=== PATIENT | female | born 1945 | race Caucasian/White ===

== ENCOUNTER 2021-05-10 17:03 | Inpatient (IN) ==
[2021-05-10] MEDS ORDERED: ONDANSETRON 4 MG/2 ML VIAL IV STA (18:26)
[2021-05-10] MEDS ORDERED: methylPREDNISolone SOD SUC 125 MG/2 ML VIAL IV STA (18:26)
[2021-05-10] MEDS ORDERED: ALBUTEROL NEB SOLN 5 MG/ML 20 ML/BOTTLE CONT NEB SCH (18:30)
[2021-05-10 18:38] LABS: Basophils % 0.2 % (0.0-0.8); Eosinophils # 0.2 10*3/uL (0.0-0.87); Eosinophils % 0.9 % (0.00-10.9); Hematocrit 43.4 VOL% (35.7-47.0); Hemoglobin 14.1 GM/DL (12.0-16.0); Immature Granulocytes % 0.7 %; Immature Granulocytes Absolute 0.13 #; Lymphocytes # 0.6 10*3/uL (1.4-4.0); Lymphocytes % 3.6 % (21.3-54.2); Mean Corpuscular HGB Conc 32.5 GM/DL (32-36); Mean Corpuscular Volume 90.4 FL (87-102); Mean Platelet Volume 11.2 FL (9.6-12.0); Monocytes % 2.9 % (1.7-12.7); Neutrophils % 91.7 % (38.7-73.9); Platelet Count 211 T/CUMM (130-400); Red Cell Distribution Width 13.1 % (9.3-17.3); White Blood Count 17.6 T/CUMM (4-12)
[2021-05-10 18:45] LABS: ABG Base Excess 0.8 MMOL/L (-2.5-2.5); ABG Oxygen Saturation 92.6 % (95-100); ABG PCO2 36.5 MM HG (35-48); ABG PH 7.437 (7.35-7.45); ABG PO2 64.6 MM HG (80-95); ABG TCO2 21.2 MMOL/L (23-27)
[2021-05-10 18:47] LABS: Albumin 3.9 G/DL (3.4-5.0); Bilirubin,Total 0.5 MG/DL (0.20-1.00); Calcium 8.8 MG/DL (8.5-10.1); Osmolality,Calculated 267.4 MOS/KG (273-304); Potassium 3.7 MMOL/L (3.5-5.1); Total Protein 7.3 G/DL (6.4-8.2)
[2021-05-10 18:48] LABS: INR 1.1; PT Patient Result 12.1 SECS (10.5-12.0)
[2021-05-10] MEDS ORDERED: MAGNESIUM SULF RIDER 2 GM/50 ML PREMIX IV STA (18:52)
[2021-05-10 19:21] LABS: Eosinophils 2 % (0-10); Hypersegmented Neutrophil 2+; Hypochromasia 1+; Lymphocytes 4 % (20-55); Segmented Neutrophils 92 % (50-85); Total Cells Counted 100
[2021-05-10 19:22] LABS: Platelet Estimate Normal
[2021-05-10] MEDS ORDERED: cefTRIAXone 1,000 MG in SODIUM CHLORIDE 0.9% 100 ML IV STA (21:35)
[2021-05-10] MEDS ORDERED: DEXTROSE 50% 25 GM/50 ML VIAL IV PRN (22:17)
[2021-05-10] MEDS ORDERED: MORPHINE 2 MG/1 ML SYRINGE IV PRN (22:17)
[2021-05-10] MEDS ORDERED: ACETAMINOPHEN 325 MG TABLET PO PRN (22:17)
[2021-05-10] MEDS ORDERED: PROMETHAZINE 25 MG TABLET PO PRN (22:17)
[2021-05-10] MEDS ORDERED: ONDANSETRON 4 MG/2 ML VIAL IV PRN (22:17)
[2021-05-10] MEDS ORDERED: diphenhydrAMINE CAP 25 MG CAPSULE PO PRN (22:17)
[2021-05-10] MEDS ORDERED: hydrALAZINE 20 MG/1 ML VIAL IV PRN (22:17)
[2021-05-10] MEDS ORDERED: NICOTINE 21 MG/24 HR PATCH TRANSDERM PRN (22:17)
[2021-05-10] MEDS ORDERED: GLUCAGON 1 MG VIAL IM PRN (22:17)
[2021-05-10] MEDS ORDERED: ZALEPLON 5 MG CAPSULE PO PRN (22:17)
[2021-05-10] MEDS ORDERED: guaiFENesin/DM ER 600-30 MG TABLET PO PRN (22:17)
[2021-05-10 22:37] LABS: Bilirubin,Urine Negative (Negative); Blood, Urine Small mg/dL (Negative); Glucose,Urine (UA) Negative (Negative); Hyaline Casts,Urine 20 /LPF (0-3); Ketones,Urine Negative (Negative); Mucus,Urine Occasional /LPF (Occasional); Nitrite,Urine Negative (Negative); Protein,Urine Negative; RBC,Urine <1 /HPF (0-4); Squamous Epithelial Cell,Urine Occasional /HPF (0-10); Urine Appearance CLEAR (Clear); Urine Color Yellow (Yellow); Urine Specific Gravity 1.006 (1.001-1.035); Urine Urobilinogen < 2.0 EU/DL (0.2-1.0)
[2021-05-10] MEDS: ALBUTEROL/IPRATROPIUM 3 ML NEB RESP TX SCH (23:50)
[2021-05-11] MEDS: AZITHROMYCIN INJ 500 MG in SODIUM CHLORIDE 0.9% 250 ML IV SCH ×2 (00:55→23:09)
[2021-05-11 01:51] LABS: Basophils % 0.2 % (0.0-0.8); Eosinophils % 0.1 % (0.00-10.9); Hematocrit 40.2 VOL% (35.7-47.0); Immature Granulocytes % 0.7 %; Immature Granulocytes Absolute 0.09 #; Lymphocytes # 0.3 10*3/uL (1.4-4.0); Lymphocytes % 2.5 % (21.3-54.2); Mean Corpuscular HGB Conc 32.3 GM/DL (32-36); Mean Corpuscular Volume 92.4 FL (87-102); Mean Platelet Volume 9.5 FL (9.6-12.0); Monocytes % 0.6 % (1.7-12.7); Neutrophils % 95.9 % (38.7-73.9); Platelet Count 274 T/CUMM (130-400); Red Blood Count 4.35 MC/CUMM (3.8-5.5); Red Cell Distribution Width 13.2 % (9.3-17.3); White Blood Count 12.5 T/CUMM (4-12)
[2021-05-11 02:07] LABS: Calcium 8.7 MG/DL (8.5-10.1); Osmolality,Calculated 272.4 MOS/KG (273-304); Potassium 3.2 MMOL/L (3.5-5.1)
[2021-05-11 02:11] LABS: Hypochromasia Slight; Lymphocytes 1 % (20-55); Microcytosis Slight; Platelet Estimate Normal; Segmented Neutrophils 98 % (50-85); Total Cells Counted 100
[2021-05-11] MEDS: ALBUTEROL/IPRATROPIUM 3 ML NEB RESP TX SCH ×7 (03:30→23:38)
[2021-05-11] MEDS: methylPREDNISolone SOD SUC 40 MG/1 ML VIAL IV SCH ×3 (04:16→20:16)
[2021-05-11 08:00] LABS: ABG Base Excess 1.4 MMOL/L (-2.5-2.5); ABG HCO3 25.5 MMOL/L (20-26); ABG Oxygen Saturation 90.7 % (95-100); ABG PCO2 40.7 MM HG (35-48); ABG PH 7.415 (7.35-7.45); ABG PO2 59.6 MM HG (80-95); ABG TCO2 22.8 MMOL/L (23-27)
[2021-05-11] MEDS: ENOXAPARIN 40 MG/0.4 ML SYRINGE SUBCUT SCH (08:54)
[2021-05-11] MEDS: PANTOPRAZOLE 40 MG TABLET PO SCH (08:55)
[2021-05-11] MEDS: cefTRIAXone 1,000 MG in SODIUM CHLORIDE 0.9% 100 ML IV SCH (08:56)
[2021-05-11] MEDS: BISACODYL 5 MG TABLET PO SCH (10:49)
[2021-05-11] MEDS: POTASSIUM CHLORIDE 20 MEQ TABLET PO PRN ×4 (13:05→18:07)
[2021-05-12] MEDS: ALBUTEROL/IPRATROPIUM 3 ML NEB RESP TX SCH ×4 (02:50→10:39)
[2021-05-12] MEDS: methylPREDNISolone SOD SUC 40 MG/1 ML VIAL IV SCH (04:18)
[2021-05-12 05:13] LABS: ABG Base Excess -0.4 MMOL/L (-2.5-2.5); ABG Oxygen Saturation 95.4 % (95-100); ABG PCO2 41.7 MM HG (35-48); ABG PH 7.381 (7.35-7.45); ABG PO2 77.6 MM HG (80-95); ABG TCO2 21.8 MMOL/L (23-27); Allen Test Positive
[2021-05-12 05:50] LABS: Calcium 9.1 MG/DL (8.5-10.1); Osmolality,Calculated 280.7 MOS/KG (273-304); Potassium 4.8 MMOL/L (3.5-5.1)
[2021-05-12 05:54] LABS: Ferritin 197.2 ng/ml (8-252)
[2021-05-12 05:56] LABS: Basophils % 0.1 % (0.0-0.8); Hematocrit 37.7 VOL% (35.7-47.0); Hemoglobin 11.9 GM/DL (12.0-16.0); Immature Granulocytes % 0.9 %; Immature Granulocytes Absolute 0.19 #; Lymphocytes # 0.8 10*3/uL (1.4-4.0); Lymphocytes % 3.8 % (21.3-54.2); Mean Corpuscular HGB Conc 31.6 GM/DL (32-36); Mean Corpuscular Volume 93.8 FL (87-102); Mean Platelet Volume 12.4 FL (9.6-12.0); Monocytes % 3.1 % (1.7-12.7); Neutrophils % 92.1 % (38.7-73.9); Red Blood Count 4.02 MC/CUMM (3.8-5.5); Red Cell Distribution Width 13.5 % (9.3-17.3)
[2021-05-12 05:57] LABS: Platelet Count 120 T/CUMM (130-400); White Blood Count 21.9 T/CUMM (4-12)
[2021-05-12 05:59] LABS: Band Neutrophils 1 % (0-10); Lymphocytes 3 % (20-55); Segmented Neutrophils 94 % (50-85); Total Cells Counted 100
[2021-05-12 06:00] LABS: Hypochromasia Slight; Microcytosis Slight; Ovalocytes Slight
[2021-05-12 08:03] VITALS: BP 123/54
[2021-05-12] MEDS: cefTRIAXone 1,000 MG in SODIUM CHLORIDE 0.9% 100 ML IV SCH (09:09)
[2021-05-12] MEDS: BISACODYL 5 MG TABLET PO SCH (09:09)
[2021-05-12] MEDS: PANTOPRAZOLE 40 MG TABLET PO SCH (09:09)
[2021-05-12] MEDS: ENOXAPARIN 40 MG/0.4 ML SYRINGE SUBCUT SCH (09:11)
[2021-05-12] MEDS ORDERED: methylPREDNISolone SOD SUC 40 MG/1 ML VIAL IV SCH (12:00)
[2021-05-12] MEDS ORDERED: NICOTINE 21 MG/24 HR PATCH TRANSDERM SCH (13:30)
[2021-05-12] MEDS ORDERED: buPROPion SR 100 MG TABLET PO SCH (21:00)
== END 2021-05-12 13:50 | disposition home or self-care (01) | DRG 193 ==
LOC: N.ED 17:03 → N.EDINP 22:17 → N.TELES 05-11 01:03
PROVIDERS: ADMIT Hospitalist; ATTEND Hospitalist

== ENCOUNTER 2021-05-15 09:21 | Inpatient (IN) ==
[2021-05-15] MEDS ORDERED: ONDANSETRON 4 MG/2 ML VIAL ONE (10:32)
[2021-05-15] MEDS ORDERED: ONDANSETRON 4 MG/2 ML VIAL IV STA (10:34)
[2021-05-15 11:02] LABS: Basophils % 0.2 % (0.0-0.8); Eosinophils # 1.4 10*3/uL (0.0-0.87); Eosinophils % 7.2 % (0.00-10.9); Immature Granulocytes % 0.8 %; Immature Granulocytes Absolute 0.16 #; Lymphocytes # 2.4 10*3/uL (1.4-4.0); Lymphocytes % 12.5 % (21.3-54.2); Mean Corpuscular HGB Conc 31.7 GM/DL (32-36); Mean Corpuscular Volume 93.1 FL (87-102); Mean Platelet Volume 9.2 FL (9.6-12.0); Monocytes % 3.4 % (1.7-12.7); Neutrophils % 75.9 % (38.7-73.9); Red Cell Distribution Width 13.2 % (9.3-17.3); White Blood Count 18.9 T/CUMM (4-12)
[2021-05-15 11:05] LABS: Red Blood Count 4.94 MC/CUMM (3.8-5.5)
[2021-05-15 11:06] LABS: Hemoglobin 14.6 GM/DL (12.0-16.0); Platelet Count 392 T/CUMM (130-400)
[2021-05-15 11:23] LABS: Albumin 3.5 G/DL (3.4-5.0); Bilirubin,Total 0.5 MG/DL (0.20-1.00); Calcium 8.7 MG/DL (8.5-10.1); Osmolality,Calculated 276.8 MOS/KG (273-304); Potassium 4.5 MMOL/L (3.5-5.1)
[2021-05-15 12:31] LABS: Bilirubin,Urine Negative (Negative); Blood, Urine Negative (Negative); Glucose,Urine (UA) Negative (Negative); Ketones,Urine Negative (Negative); Mucus,Urine Occasional /LPF (Occasional); Nitrite,Urine Negative (Negative); Protein,Urine Negative; RBC,Urine 2 /HPF (0-4); Squamous Epithelial Cell,Urine Occasional /HPF (0-10); Urine Appearance CLEAR (Clear); Urine Color Yellow (Yellow); Urine Urobilinogen < 2.0 EU/DL (0.2-1.0)
[2021-05-15] MEDS ORDERED: LEVOFLOXACIN INJ 750 MG/150 ML PREMIX IV STA (13:01)
[2021-05-15] MEDS ORDERED: SODIUM CHLORIDE 0.9% 1,000 ML IV STA (13:04)
[2021-05-15] MEDS ORDERED: ONDANSETRON 4 MG/2 ML VIAL IV PRN (13:56)
[2021-05-15] MEDS ORDERED: hydrALAZINE 20 MG/1 ML VIAL IV PRN (13:56)
[2021-05-15] MEDS ORDERED: DEXTROSE 50% 25 GM/50 ML VIAL IV PRN (13:56)
[2021-05-15] MEDS ORDERED: BISACODYL 5 MG TABLET PO PRN (13:56)
[2021-05-15] MEDS ORDERED: guaiFENesin/DM ER 600-30 MG TABLET PO PRN (13:56)
[2021-05-15] MEDS ORDERED: NICOTINE 21 MG/24 HR PATCH TRANSDERM PRN (13:56)
[2021-05-15] MEDS ORDERED: GLUCAGON 1 MG VIAL IM PRN (13:56)
[2021-05-15] MEDS: methylPREDNISolone SOD SUC 40 MG/1 ML VIAL IV SCH ×2 (15:43→20:35)
[2021-05-15] MEDS: MEROPENEM 500 MG in SODIUM CHLORIDE 0.9% 100 ML IV SCH ×2 (15:43→20:36)
[2021-05-15] MEDS: ENOXAPARIN 40 MG/0.4 ML SYRINGE SUBCUT SCH (15:43)
[2021-05-15] MEDS: LACTATED RINGERS 1,000 ML IV SCH (15:43)
[2021-05-15] MEDS ORDERED: MORPHINE 2 MG/1 ML SYRINGE IV PRN (17:02)
[2021-05-15] MEDS: PANTOPRAZOLE 40 MG VIAL IV SCH (20:35)
[2021-05-15] MEDS ORDERED: buPROPion SR 100 MG TABLET PO SCH (21:00)
[2021-05-15] MEDS: ALBUTEROL/IPRATROPIUM 3 ML NEB RESP TX SCH (21:00)
[2021-05-15] MEDS: LINEZOLID INJ 600 MG/300 ML PREMIX IV SCH (22:25)
[2021-05-16] MEDS: ALBUTEROL/IPRATROPIUM 3 ML NEB RESP TX SCH ×4 (00:09→20:36)
[2021-05-16] MEDS: methylPREDNISolone SOD SUC 40 MG/1 ML VIAL IV SCH ×3 (01:11→14:56)
[2021-05-16] MEDS: LACTATED RINGERS 1,000 ML IV SCH ×3 (01:12→18:26)
[2021-05-16] MEDS: MEROPENEM 500 MG in SODIUM CHLORIDE 0.9% 100 ML IV SCH ×4 (01:12→20:31)
[2021-05-16 05:24] LABS: Basophils % 0.1 % (0.0-0.8); Eosinophils % 0.1 % (0.00-10.9); Hematocrit 36.5 VOL% (35.7-47.0); Immature Granulocytes % 0.8 %; Immature Granulocytes Absolute 0.17 #; Lymphocytes # 1.6 10*3/uL (1.4-4.0); Lymphocytes % 7.7 % (21.3-54.2); Mean Corpuscular HGB Conc 31.8 GM/DL (32-36); Mean Corpuscular Volume 92.2 FL (87-102); Mean Platelet Volume 11.3 FL (9.6-12.0); Monocytes % 1.8 % (1.7-12.7); Neutrophils % 89.5 % (38.7-73.9); Red Blood Count 3.96 MC/CUMM (3.8-5.5); Red Cell Distribution Width 13.1 % (9.3-17.3); White Blood Count 20.5 T/CUMM (4-12)
[2021-05-16 05:25] LABS: Albumin 2.5 G/DL (3.4-5.0); Bilirubin,Total 0.4 MG/DL (0.20-1.00); Calcium 8.3 MG/DL (8.5-10.1); Potassium 4.3 MMOL/L (3.5-5.1); Risk Ratio 3.38; Thyroid Stimulating Hormone 0.334 uIU/ml (0.358-3.74); VLDL Cholesterol 21.6 MG/DL
[2021-05-16 05:37] LABS: Hemoglobin 11.6 GM/DL (12.0-16.0); Platelet Count 171 T/CUMM (130-400)
[2021-05-16 05:38] LABS: Hypochromasia Slight; Microcytosis Slight
[2021-05-16] MEDS: PANTOPRAZOLE 40 MG VIAL IV SCH ×2 (08:38→20:31)
[2021-05-16] MEDS ORDERED: PANTOPRAZOLE 40 MG TABLET PO SCH (09:00)
[2021-05-16] MEDS: MULTIVITAMIN (BEROCCA) TABLET PO SCH (11:17)
[2021-05-16] MEDS: LINEZOLID INJ 600 MG/300 ML PREMIX IV SCH (12:53)
[2021-05-16] MEDS: ENOXAPARIN 40 MG/0.4 ML SYRINGE SUBCUT SCH (20:31)
[2021-05-17] MEDS: ALBUTEROL/IPRATROPIUM 3 ML NEB RESP TX SCH ×4 (01:15→20:35)
[2021-05-17] MEDS: LINEZOLID INJ 600 MG/300 ML PREMIX IV SCH ×3 (01:16→23:01)
[2021-05-17] MEDS: MEROPENEM 500 MG in SODIUM CHLORIDE 0.9% 100 ML IV SCH ×4 (03:02→20:48)
[2021-05-17] MEDS: LACTATED RINGERS 1,000 ML IV SCH ×3 (03:03→20:55)
[2021-05-17] MEDS: methylPREDNISolone SOD SUC 40 MG/1 ML VIAL IV SCH ×2 (03:03→15:10)
[2021-05-17 05:39] LABS: Basophils % 0.2 % (0.0-0.8); Eosinophils % 0.1 % (0.00-10.9); Hematocrit 31.7 VOL% (35.7-47.0); Hemoglobin 10.2 GM/DL (12.0-16.0); Immature Granulocytes % 2.3 %; Immature Granulocytes Absolute 0.45 #; Lymphocytes # 1.7 10*3/uL (1.4-4.0); Lymphocytes % 8.3 % (21.3-54.2); Mean Corpuscular HGB Conc 32.2 GM/DL (32-36); Mean Corpuscular Volume 94.1 FL (87-102); Mean Platelet Volume 10.6 FL (9.6-12.0); Monocytes % 4.4 % (1.7-12.7); Neutrophils % 84.7 % (38.7-73.9); Platelet Count 286 T/CUMM (130-400); Red Blood Count 3.37 MC/CUMM (3.8-5.5); Red Cell Distribution Width 13.3 % (9.3-17.3)
[2021-05-17 06:04] LABS: Albumin 2.4 G/DL (3.4-5.0); Bilirubin,Total 0.4 MG/DL (0.20-1.00); Calcium 8.6 MG/DL (8.5-10.1); Total Protein 5.7 G/DL (6.4-8.2)
[2021-05-17] MEDS: MULTIVITAMIN (BEROCCA) TABLET PO SCH (09:34)
[2021-05-17] MEDS: PANTOPRAZOLE 40 MG VIAL IV SCH ×2 (09:37→20:54)
[2021-05-17] MEDS: ENOXAPARIN 40 MG/0.4 ML SYRINGE SUBCUT SCH (20:49)
[2021-05-18] MEDS: ALBUTEROL/IPRATROPIUM 3 ML NEB RESP TX SCH ×4 (01:45→19:25)
[2021-05-18] MEDS: MEROPENEM 500 MG in SODIUM CHLORIDE 0.9% 100 ML IV SCH ×4 (03:26→20:47)
[2021-05-18] MEDS: methylPREDNISolone SOD SUC 40 MG/1 ML VIAL IV SCH ×2 (03:26→14:55)
[2021-05-18 04:14] LABS: Basophils % 0.3 % (0.0-0.8); Eosinophils % 0.2 % (0.00-10.9); Hematocrit 31.6 VOL% (35.7-47.0); Hemoglobin 10.2 GM/DL (12.0-16.0); Immature Granulocytes % 5.7 %; Immature Granulocytes Absolute 0.88 #; Lymphocytes # 2.3 10*3/uL (1.4-4.0); Lymphocytes % 15.1 % (21.3-54.2); Mean Corpuscular HGB Conc 32.3 GM/DL (32-36); Mean Corpuscular Volume 92.7 FL (87-102); Mean Platelet Volume 9.5 FL (9.6-12.0); Monocytes % 6.3 % (1.7-12.7); Neutrophils % 72.4 % (38.7-73.9); Platelet Count 356 T/CUMM (130-400); Red Blood Count 3.41 MC/CUMM (3.8-5.5); Red Cell Distribution Width 13.6 % (9.3-17.3); White Blood Count 15.4 T/CUMM (4-12)
[2021-05-18 04:34] LABS: Albumin 2.4 G/DL (3.4-5.0); Bilirubin,Total 0.4 MG/DL (0.20-1.00); Calcium 8.6 MG/DL (8.5-10.1); Osmolality,Calculated 277.5 MOS/KG (273-304); Potassium 4.1 MMOL/L (3.5-5.1); Total Protein 5.9 G/DL (6.4-8.2)
[2021-05-18 04:36] LABS: Hypochromasia 1+; Lymphocytes 13 % (20-55); Microcytosis 1+; Platelet Estimate Adequate; Segmented Neutrophils 81 % (50-85); Total Cells Counted 100
[2021-05-18] MEDS: LACTATED RINGERS 1,000 ML IV SCH ×2 (06:07→12:00)
[2021-05-18] MEDS: MULTIVITAMIN (BEROCCA) TABLET PO SCH (10:25)
[2021-05-18] MEDS: PANTOPRAZOLE 40 MG VIAL IV SCH (10:28)
[2021-05-18] MEDS: LINEZOLID INJ 600 MG/300 ML PREMIX IV SCH (12:40)
[2021-05-18] MEDS ORDERED: FUROSEMIDE 20 MG/2 ML VIAL IV ONE (13:00)
[2021-05-18] MEDS: BENZONATATE 100 MG CAPSULE PO SCH ×2 (14:55→20:45)
[2021-05-18] MEDS: ENOXAPARIN 40 MG/0.4 ML SYRINGE SUBCUT SCH (20:47)
[2021-05-19 00:26] LABS: Specimen Source NASOPHARYNGEAL SWAB
[2021-05-19] MEDS: LINEZOLID INJ 600 MG/300 ML PREMIX IV SCH ×2 (00:28→11:15)
[2021-05-19] MEDS: ALBUTEROL/IPRATROPIUM 3 ML NEB RESP TX SCH ×5 (01:20→20:40)
[2021-05-19] MEDS: MEROPENEM 500 MG in SODIUM CHLORIDE 0.9% 100 ML IV SCH ×4 (03:42→21:23)
[2021-05-19] MEDS: methylPREDNISolone SOD SUC 40 MG/1 ML VIAL IV SCH ×2 (03:45→16:44)
[2021-05-19 05:17] LABS: Basophils % 0.3 % (0.0-0.8); Eosinophils # 0.1 10*3/uL (0.0-0.87); Eosinophils % 0.4 % (0.00-10.9); Hematocrit 33.1 VOL% (35.7-47.0); Hemoglobin 10.6 GM/DL (12.0-16.0); Immature Granulocytes % 6.6 %; Lymphocytes # 3.3 10*3/uL (1.4-4.0); Lymphocytes % 23.7 % (21.3-54.2); Mean Corpuscular Volume 93.8 FL (87-102); Mean Platelet Volume 10.7 FL (9.6-12.0); Monocytes % 8.1 % (1.7-12.7); Neutrophils % 60.9 % (38.7-73.9); Platelet Count 305 T/CUMM (130-400); Red Blood Count 3.53 MC/CUMM (3.8-5.5); Red Cell Distribution Width 13.5 % (9.3-17.3); White Blood Count 13.7 T/CUMM (4-12)
[2021-05-19 05:50] LABS: Albumin 2.5 G/DL (3.4-5.0); Bilirubin,Total 1.1 MG/DL (0.20-1.00); Calcium 8.3 MG/DL (8.5-10.1); Osmolality,Calculated 281.3 MOS/KG (273-304); Potassium 3.7 MMOL/L (3.5-5.1); Total Protein 5.8 G/DL (6.4-8.2)
[2021-05-19 05:55] LABS: Eosinophils 1 % (0-10); Hypochromasia 1+; Lymphocytes 22 % (20-55); Microcytosis 1+; Platelet Estimate Adequate; Segmented Neutrophils 73 % (50-85); Total Cells Counted 100
[2021-05-19] MEDS: PANTOPRAZOLE 40 MG TABLET PO SCH (06:26)
[2021-05-19] MEDS: BENZONATATE 100 MG CAPSULE PO SCH ×3 (09:02→21:20)
[2021-05-19] MEDS: MULTIVITAMIN (BEROCCA) TABLET PO SCH (09:02)
[2021-05-19] MEDS: ENOXAPARIN 40 MG/0.4 ML SYRINGE SUBCUT SCH (21:21)
[2021-05-20] MEDS: LINEZOLID INJ 600 MG/300 ML PREMIX IV SCH ×2 (00:51→11:05)
[2021-05-20] MEDS: ALBUTEROL/IPRATROPIUM 3 ML NEB RESP TX SCH ×2 (01:05→07:25)
[2021-05-20] MEDS: MEROPENEM 500 MG in SODIUM CHLORIDE 0.9% 100 ML IV SCH ×2 (03:50→08:39)
[2021-05-20] MEDS: methylPREDNISolone SOD SUC 40 MG/1 ML VIAL IV SCH (03:57)
[2021-05-20 05:50] LABS: Basophils % 0.3 % (0.0-0.8); Eosinophils % 0.1 % (0.00-10.9); Hematocrit 34.8 VOL% (35.7-47.0); Immature Granulocytes Absolute 0.79 #; Lymphocytes # 2.3 10*3/uL (1.4-4.0); Lymphocytes % 14.4 % (21.3-54.2); Mean Corpuscular HGB Conc 31.6 GM/DL (32-36); Mean Corpuscular Volume 94.6 FL (87-102); Mean Platelet Volume 9.1 FL (9.6-12.0); Monocytes % 4.8 % (1.7-12.7); Neutrophils % 75.4 % (38.7-73.9); Platelet Count 358 T/CUMM (130-400); Red Blood Count 3.68 MC/CUMM (3.8-5.5); Red Cell Distribution Width 13.3 % (9.3-17.3); White Blood Count 15.8 T/CUMM (4-12)
[2021-05-20] MEDS: PANTOPRAZOLE 40 MG TABLET PO SCH (06:02)
[2021-05-20 06:14] LABS: Albumin 2.6 G/DL (3.4-5.0); Bilirubin,Total 0.4 MG/DL (0.20-1.00); Calcium 8.5 MG/DL (8.5-10.1); Osmolality,Calculated 280.4 MOS/KG (273-304); Potassium 4.1 MMOL/L (3.5-5.1); Total Protein 5.8 G/DL (6.4-8.2)
[2021-05-20 06:37] LABS: Eosinophils 1 % (0-10); Lymphocytes 16 % (20-55); Platelet Estimate Normal; Segmented Neutrophils 80 % (50-85); Total Cells Counted 100
[2021-05-20] MEDS: BENZONATATE 100 MG CAPSULE PO SCH (08:39)
[2021-05-20] MEDS: MULTIVITAMIN (BEROCCA) TABLET PO SCH (08:39)
[2021-05-20] MEDS ORDERED: AMOXICILLIN/CLAV 875 MG TABLET PO SCH (09:30)
[2021-05-20 12:20] VITALS: BP 122/60
== END 2021-05-20 12:29 | disposition home health service (06) | DRG 391 ==
LOC: N.ED 09:21 → N.EDINP 13:16 → SUATTDRO 13:16 → N.EDINP 14:57 → N.5E 15:26
PROVIDERS: ADMIT Hospitalist; ATTEND Internal Medicine